=== PATIENT | male | born 1990 | race American Indian/Alaskan Native ===

== ENCOUNTER 2018-04-28 17:03 | Emergency (ER) | payer OTHER ==
[2018-04-28] MEDS ORDERED: Methocarbamol 500 MG Tab PO STA (18:41)
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
[2018-04-28 19:24] VITALS: RESP 18; TEMP 98.8; O2SAT 100
[2018-04-28 20:41] VITALS: BP 122/65; PULSE 65
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
== END 2018-04-28 20:59 | disposition home or self-care (01) ==
LOC: ED 17:03
DX: S13.4XXA Sprain of ligaments of cervical spine, initial encounter (principal); S16.1XXA Strain of muscle, fascia and tendon at neck level, initial encounter; S33.6XXA Sprain of sacroiliac joint, initial encounter; V49.49XA Driver injured in collision with other motor vehicles in traffic accident, initial encounter; Y92.410 Unspecified street and highway as the place of occurrence of the external cause
CPT/HCPCS: 72050; 72100; 96372; 99284; J1885